=== PATIENT | female | born 1995 | race African-American/Black ===

== ENCOUNTER 2022-08-15 08:33 | Emergency (ER) | payer MEDICAID ==
[~2022-08-15] VITALS: Ht 170.2 cm; Wt 79.0 kg
[2022-08-15 08:47] VITALS: BP 134/84
[2022-08-15 11:58] LABS: BASOPHILS % 0.2 % (0.0-2.0); EOSINOPHILS % 0.2 % (0.0-5.0); HEMATOCRIT. 39.6 % (36.0-48.0); LYMPHOCYTES % 16.6 % (20.0-50.0); MEAN CORPUSCULAR HEMOGLOBIN 25.4 pg (28.0-32.0); MEAN CORPUSCULAR VOLUME 77.4 fL (81.0-99.0); MONOCYTES % 12.3 % (2.0-8.0); NEUTROPHILS % 70.7 % (40.0-76.0); RED BLOOD CELL COUNT 5.12 mill/uL (4.2-5.4); RED CELL DISTRIBUTION WIDTH 25.7 % (11.6-14.6)
[2022-08-15] MEDS ORDERED: ACETAMINOPHEN 325MG TABLET PO PRN (12:00)
[2022-08-15 12:08] LABS: CHLORIDE 104 mEq/L (98-107)
[2022-08-15 12:25] LABS: CLARITY URINE CLEAR (CLEAR); COLOR URINE DARK YELLOW (YELLOW); KETONES URINE TRACE (NEGATIVE); LEUKOCYTE ESTERASE URINE NEGATIVE (NEGATIVE); NITRITE URINE NEGATIVE (NEGATIVE); OCCULT BLOOD URINE NEGATIVE (NEGATIVE); PH URINE 5.5 (4.5-8.0); PROTEIN URINE TRACE (NEGATIVE); SPECIFIC GRAVITY URINE 1.019 (1.005-1.030)
[2022-08-15 13:46] LABS: MEAN PLATELET VOLUME 10.3 fl (7.4-10.4); PLATELET ESTIMATE DECREASED
[2022-08-15 13:47] LABS: PLATELET 113 x1000/uL (130-400)
[2022-08-15] MEDS ORDERED: TOPUD MT (15:14)
[2022-08-15] MEDS ORDERED: CEPH500C2 MT (15:14)
== END 2022-08-15 15:45 | disposition home or self-care (01) ==
LOC: ER 08:33
DX: O23.41 Unspecified infection of urinary tract in pregnancy, first trimester (principal); N39.0 Urinary tract infection, site not specified; Z3A.01 Less than 8 weeks gestation of pregnancy
CPT/HCPCS: 36415; 76801; 80053; 81003; 84702; 85025; 99284